=== PATIENT | female | born 1945 | race Caucasian/White ===

== ENCOUNTER → 2020-01-18 | Outpatient (CLI) | payer OTHER, SELFPAY ==
--- NOTE | 2020-01-18 15:08 | RAD_ITS ---
STUDY: X-RAY - ABDOMEN/PELVIS REASON FOR EXAM: Female, 74 years old. Kidney stones TECHNIQUE: Single AP view of the abdomen / pelvis. COMPARISON: None. FINDINGS: Normal visualized lung bases. There is a 9 mm probable left renal stone. No other stones are seen. There is an unremarkable bowel gas pattern. There is no demonstrated free abdominal air. The visualized liver, spleen and kidneys are grossly normal in size and morphology. Normal soft tissue structures. Normal visualized osseous structures. RAD/Abdomen Single View IMPRESSION: There is a 9 mm probable left renal stone. No other stones are seen. Electronically Signed: Armin Singh MD at 14:43 EST , Service support ,
== END | disposition home or self-care (01) ==
LOC: MTRAD 15:05
PROVIDERS: PCP Student in an Organized Health Care Education/Training Program; Referring Provider Urology; Visit Provider Urology
DX: N20.0 Calculus of kidney (principal)
CPT/HCPCS: 74018